=== PATIENT | female | born 1955 | race Caucasian/White ===

== ENCOUNTER 2022-11-19 06:27 | Emergency (ER) | payer BC ==
[~2022-11-19] VITALS: Ht 157.5 cm; Wt 80.0 kg
[2022-11-19 07:14] LABS: BASOPHILS % (AUTO) 0.7 % (0-1); EOSINOPHILS # (AUTO) 0.1 X10'3 (0-0.9); HEMATOCRIT 41.1 % (35.0-45.0); HEMOGLOBIN 14.4 g/dl (12.0-16.0); LYMPHOCYTES # (AUTO) 0.9 X10'3 (1.1-4.8); LYMPHOCYTES % (AUTO) 13.6 % (21-51); MEAN CORPUSCULAR HEMOGLOBIN 33.6 PG (27.0-31.0); MEAN CORPUSCULAR VOLUME 96.2 FL (78-98); MEAN PLATELET VOLUME 6.9 FL (7.4-10.4); MONOCYTES # (AUTO) 0.6 X10'3 (0-0.9); MONOCYTES % (AUTO) 9.3 % (2-12); NEUTROPHILS # (AUTO) 4.8 X10'3 (1.8-7.7); NEUTROPHILS % (AUTO) 74.4 % (42-75); PLATELET COUNT 241 X10'3 (140-440); RED BLOOD COUNT 4.28 X10'6 (4.20-5.60); RED CELL DISTRIBUTION WIDTH 12.7 % (11.5-14.5); WHITE BLOOD COUNT 6.5 X10'3 (4.5-11.0)
[2022-11-19 07:28] LABS: ALANINE AMINOTRANSFERASE 34 U/L (12-78); ALBUMIN 3.5 G/DL (3.4-5.0); ALBUMIN/GLOBULIN RATIO 0.8 (1.1-1.5); ALKALINE PHOSPHATASE 86 IU/L (46-116); ANION GAP 8 (8-16); ASPARTATE AMINO TRANSFERASE 40 U/L (10-37); BILIRUBIN,TOTAL 0.5 MG/DL (0.1-1.0); BLOOD UREA NITROGEN 10 MG/DL (7-18); BUN/CREATININE RATIO 18.9 (6.6-38.0); CALCIUM 9.3 MG/DL (8.5-10.1); CHLORIDE 100 MMOL/L (99-107); CREATININE 0.53 MG/DL (0.40-0.90); GLUCOSE 109 MG/DL (70-104); SODIUM 135 MMOL/L (135-145); TOTAL CARBON DIOXIDE 26.9 MMOL/L (24-32); TOTAL PROTEIN 7.7 G/DL (6.4-8.2); eGFR > 90 ML/MIN
[2022-11-19] MEDS ORDERED: LOSA1TAB36 PO (08:12)
[2022-11-19] MEDS ORDERED: LEVO100T9 PO (08:12)
[2022-11-19] MEDS ORDERED: OSC500T PO (08:12)
[2022-11-19] MEDS ORDERED: CHOL400T32 PO (08:12)
[2022-11-19 08:23] VITALS: BP 139/83
== END 2022-11-19 08:25 | disposition home or self-care (01) ==
LOC: ER 06:28
DX: I10 Essential (primary) hypertension (principal); Z79.899 Other long term (current) drug therapy
CPT/HCPCS: 36415; 71045; 80053; 83880; 84484; 85025; 93005; 99285

== ENCOUNTER 2024-01-19 03:39 | Emergency (ER) | payer BC ==
[~2024-01-19] VITALS: Ht 154.9 cm; Wt 75.0 kg
[~2024-01-19 03:39] MED LIST: CHOL400T32 PO; LEVO100T9 PO; LOSA1TAB36 PO; OSC500T PO
[2024-01-19 03:41] VITALS: BP 130/76; O2SAT 96
[2024-01-19 05:18] VITALS: PULSE 68; RESP 18; TEMP 97.2
== END 2024-01-19 05:22 | disposition home or self-care (01) ==
LOC: ER 03:39
DX: T19.2XXA Foreign body in vulva and vagina, initial encounter (principal); I10 Essential (primary) hypertension; Z79.899 Other long term (current) drug therapy; W44.8XXA Other foreign body entering into or through a natural orifice, initial encounter
CPT/HCPCS: 72170; 99284